=== PATIENT | male | born 1950 | race Caucasian/White ===

== ENCOUNTER 2016-10-20 12:58 | Outpatient (CLI) | payer MEDICARE, OTHER | END 2016-10-20 12:59 | disposition EMS.NT | DX: Z03.89 Encounter for observation for other suspected diseases and conditions ruled out (principal) ==

== ENCOUNTER 2017-01-27 12:08 | Outpatient (CLI) | payer MEDICARE, OTHER | END 2017-01-27 12:09 | disposition EMS.NT | LOC: EMS 12:08 | PROVIDERS: ATTEND Surgery | DX: R41.82 Altered mental status, unspecified (principal) ==

== ENCOUNTER 2017-05-09 23:02 | Outpatient (CLI) | payer MEDICARE, OTHER | END 2017-05-09 23:03 | disposition EMS.NT | LOC: EMS 23:02 | PROVIDERS: ATTEND Surgery | DX: R41.82 Altered mental status, unspecified (principal) ==

== ENCOUNTER 2017-05-24 21:06 | Outpatient (CLI) | payer MEDICARE, OTHER | END 2017-05-24 21:07 | disposition EMS.NT | LOC: EMS 21:06 | PROVIDERS: ATTEND Surgery | DX: Z03.89 Encounter for observation for other suspected diseases and conditions ruled out (principal) ==

== ENCOUNTER 2017-06-10 04:21 | Outpatient (CLI) | payer MEDICARE, OTHER | END 2017-06-10 04:22 | disposition EMS.NT | LOC: EMS 04:21 | PROVIDERS: ATTEND Surgery | DX: Z03.89 Encounter for observation for other suspected diseases and conditions ruled out (principal) ==

== ENCOUNTER 2017-08-19 00:47 | Outpatient (CLI) | payer MEDICARE, OTHER | END 2017-08-19 00:48 | disposition critical access hospital (66) | LOC: EMS 00:47 | PROVIDERS: ATTEND Surgery | DX: R11.2 Nausea with vomiting, unspecified (principal); R41.0 Disorientation, unspecified | CPT/HCPCS: A0425; A0427 ==

== ENCOUNTER 2017-08-19 00:54 | Emergency (ER) | payer MEDICARE, OTHER ==
--- NOTE | 2017-08-19 01:08 | ED Physician Documentation ---
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 Patient's roommate/friend arrived home from work approximately 30 minutes ago and found patient confused, agitated, diaphoretic. He vomited x 2. Finger stick was 45. Medics established an IV and gave 1 amp D50 and 4mg IV zofran. He quickly returned to baseline level of consciousness and behavior and repeat finger stick was 150. He is asymptomatic in ED except for fatigue, which he says is not unusual for him following an episode of hypoglycemia. He has been feeling well except for mild cough x few days. He says he ate dinner tonight (pizza) and he does not have an obvious reason for his low blood sugar tonight. Review of Systems Constitutional: reports: Fatigue, Sweats. 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 denies: Abdominal Pain : denies: Dysuria, Frequency Neurologic: reports: Confused, Altered mental status. denies: Generalized weakness, Focal weakness, Numbness, Seizure, Headache PD PAST MEDICAL HISTORY - Past Medical History Past Medical History: Yes Cardiovascular: Hypertension Neuro: None Endocrine/Autoimmune: Type 2 diabetes Musculoskeletal: Osteoarthritis - Past Surgical History Past Surgical History: Yes Ortho: Shoulder arthroplasty HEENT: Tonsil/Adenoidectomy - Present Medications Home Medications: Ambulatory Orders Medication Instructions Recorded Confirmed Ascorbic Acid [Vitamin C] 1,000 mg PO DAILY 07/09/14 07/09/14 Aspirin [[place] Aspirin] 1 tab PO DAILY 07/09/14 07/09/14 Cholecalciferol (Vitamin D3) 2,000 unit PO DAILY 07/09/14 07/09/14 [Vitamin D3] Insulin Aspart [Novolog] 2 unit SQ PRN 07/09/14 07/09/14 Lisinopril 20 mg PO DAILY 07/09/14 07/09/14 Multivitamin [Multivitamins] 1 tab PO DAILY 07/09/14 07/09/14 - Allergies Allergies/Adverse Reactions: Allergies Allergy/AdvReac Type Severity Reaction Status Date / Time No Known Drug Allergies Allergy Verified 08/19/17 01:03 - Social History Does the pt smoke?: No Smoking Status: Never smoker Does the pt drink ETOH?: Yes Does the pt have substance abuse?: No - Immunizations Immunizations are current?: Yes - POLST Patient has POLST: Yes PD ED PE NORMAL - Vitals Vital signs reviewed: Yes - General General: Alert and oriented X 3, No acute distress, Well developed/nourished - HEENT HEENT: Moist mucous membranes - Neck Neck: Supple, no meningeal sign - Cardiac Cardiac: RRR, No murmur - Respiratory Respiratory: No respiratory distress, Clear bilaterally - Abdomen Abdomen: Normal bowel sounds, Soft, Non tender, Non distended - Derm Derm: Normal color, Warm and dry - Extremities Extremities: No edema - Neuro Neuro: Alert and oriented X 3 Eye Opening: Spontaneous Motor: Obeys Commands Verbal: Oriented GCS Score: 15 Results - Vitals Vitals: Vital Signs - 24 hr 08/19/17 08/19/17 08/19/17 05:28 05:30 06:40 Heart Rate 88 82 77 Respiratory 16 16 Rate Blood Pressure 134/71 H 144/77 H 166/75 H O2 Saturation 96 98 95 Oxygen O2 Source Room air - EKG (time done) No standard instances Rate: Rate (enter#) (80) Rhythm: NSR [place]: Normal Intervals: Normal NE QRS: Normal Ischemia: Normal ST segments - Labs Labs: Laboratory Tests 08/19/17 08/19/17 08/19/17 01:00 01:13 01:13 WBC 5.6 RBC 4.46 L Hgb 14.7 Hct 41.7 L MCV 93.5 MCH 33.0 H MCHC 35.3 RDW 13.4 Plt Count 262 MPV 8.2 Neut # 4.1 Lymph # 0.7 L [place] # 0.4 Eos # 0.1 Baso # 0.2 H Absolute Nucleated RBC 0.00 Nucleated RBC % 0.0 Sodium 128 L Potassium 4.2 Chloride 92 L Carbon Dioxide 25 Anion Gap 11.0 BUN 15 Creatinine 0.8 Estimated GFR (MDRD) 96 Glucose 170 H POC Whole Bld Glucose 128 H Calcium 9.3 Total Bilirubin 0.7 AST 27 ALT 21 Alkaline Phosphatase 55 Troponin I Total Protein 7.3 Albumin 4.1 Globulin 3.2 Albumin/Globulin Ratio 1.3 Lipase 19 L Urine Color Urine Clarity Urine pH Ur Specific [place] Urine Protein Urine Glucose (UA) Urine Ketones Urine Occult Blood Urine Nitrite Urine Bilirubin Urine Urobilinogen Ur Leukocyte Esterase Ur Microscopic Review Urine Culture Comments 08/19/17 08/19/17 08/19/17 01:13 02:03 03:14 WBC RBC Hgb Hct MCV MCH MCHC RDW Plt Count MPV Neut # Lymph # [place] # Eos # Baso # Absolute Nucleated RBC Nucleated RBC % Sodium Potassium Chloride Carbon Dioxide Anion Gap BUN Creatinine Estimated GFR (MDRD) Glucose POC Whole Bld Glucose 139 H Calcium Total Bilirubin AST ALT Alkaline Phosphatase Troponin I < 0.04 Total Protein Albumin Globulin Albumin/Globulin Ratio Lipase Urine Color YELLOW Urine Clarity CLEAR Urine pH 5.5 Ur Specific [place] 1.020 Urine Protein NEGATIVE Urine Glucose (UA) 100 H Urine Ketones 15 H Urine Occult Blood NEGATIVE Urine Nitrite NEGATIVE Urine Bilirubin NEGATIVE Urine Urobilinogen 0.2 (NORMAL) Ur Leukocyte Esterase NEGATIVE Ur Microscopic Review NOT INDICATED Urine Culture Comments NOT INDICATED 08/19/17 08/19/17 03:51 06:37 WBC RBC Hgb Hct MCV MCH MCHC RDW Plt Count MPV Neut # Lymph # [place] # Eos # Baso # Absolute Nucleated RBC Nucleated RBC % Sodium Potassium Chloride Carbon Dioxide Anion Gap BUN Creatinine Estimated GFR (MDRD) Glucose POC Whole Bld Glucose 238 H 299 H Calcium Total Bilirubin AST ALT Alkaline Phosphatase Troponin I Total Protein Albumin Globulin Albumin/Globulin Ratio Lipase Urine Color Urine Clarity Urine pH Ur Specific [place] Urine Protein Urine Glucose (UA) Urine Ketones Urine Occult Blood Urine Nitrite Urine Bilirubin Urine Urobilinogen Ur Leukocyte Esterase Ur Microscopic Review Urine Culture Comments - Rads (name of study) chest xray Radiology: Prelim report reviewed, See rad report PD MEDICAL DECISION MAKING - ED course Complexity details: reviewed results, re-evaluated patient, considered differential, d/w patient ED course: Patient's blood sugar stabilized and eventually started trending up late in ED stay. He was anxious to restart his insulin pump and he did so when fingerstick resulted 239. Was asymptomatic prior to discharge. Departure - Departure Disposition: Home, Self Care Clinical Impression: Hypoglycemia Condition: Good Instructions: ED Diabetes Hypoglycemia Insulin React Discharge Date/Time: 08/19/17 06:40
[2017-08-19 01:21] LABS: BASOPHILS # (AUTO) 0.2 10^3/uL (0.0-0.1); BASOPHILS % (AUTO) 2.8 %; EOSINOPHILS # (AUTO) 0.1 10^3/uL (0.0-0.7); EOSINOPHILS % (AUTO) 2.2 %; HGB - HEMOGLOBIN 14.7 g/dL (14.0-18.0); LYMPHOCYTES # (AUTO) 0.7 10^3/uL (1.5-3.5); MEAN CORPUSCULAR HGB CONC 35.3 g/dL (32.0-36.0); MEAN CORPUSCULAR VOLUME 93.5 fL (80.0-94.0); MEAN PLATELET VOLUME 8.2 fL (7.4-11.4); MONOCYTES # (AUTO) 0.4 10^3/uL (0.0-1.0); MONOCYTES % (AUTO) 7.7 %; NEUTROPHILS # (AUTO) 4.1 10^3/uL (1.5-6.6); NEUTROPHILS % (AUTO) 74.3 %; PLT - PLATELET COUNT 262 10^3/uL (130-450); RED BLOOD COUNT 4.46 10^6/uL (4.70-6.10); RED CELL DISTRIBUTION WIDTH 13.4 % (12.0-15.0); WHITE BLOOD COUNT 5.6 x10^3/uL (4.8-10.8)
[2017-08-19 01:32] LABS: ALBUMIN 4.1 g/dL (3.2-5.5); ALBUMIN/GLOBULIN RATIO 1.3 (1.0-2.2); BILIRUBIN,TOTAL 0.7 mg/dL (0.2-1.0); CALCIUM 9.3 mg/dL (8.5-10.3); CREATININE 0.8 mg/dL (0.6-1.2); TOTAL PROTEIN 7.3 g/dL (6.7-8.2)
[2017-08-19] MEDS ORDERED: SODIUM CHLORIDE 0.9% 500 ML IV STA (02:05)
--- NOTE | 2017-08-19 02:06 | XRAY Preliminary Report ---
Exam: XR CHEST 2 VIEW X-RAY IMPRESSION: No acute process seen in the chest. [facility] SITE ID: [id number]
--- NOTE | 2017-08-19 02:07 | XRAY Report ---
EXAM: CHEST RADIOGRAPHY EXAM DATE: 08/19/2017 02:00 AM. CLINICAL HISTORY: Cough. COMPARISON: 07/21/2008. TECHNIQUE: 2 views. FINDINGS: Lungs/Pleura: No focal opacities evident. No pleural effusion. No pneumothorax. Normal volumes. Mediastinum: Heart and mediastinal contours are unremarkable. Other: Mild right hemidiaphragm elevation. IMPRESSION: No acute process seen in the chest. [facility] Referring Provider Line: [phone] SITE ID: [id number]
[2017-08-19 03:27] LABS: BILIRUBIN,URINE NEGATIVE (NEGATIVE); GLUCOSE, URINE (UA) 100 mg/dL (NEGATIVE); KETONES,URINE (UA) 15 mg/dL (NEGATIVE); LEUKOCYTE ESTERASE, URINE NEGATIVE (NEGATIVE); NITRITE,URINE NEGATIVE (NEGATIVE); OCCULT BLOOD,URINE NEGATIVE (NEGATIVE); PH,URINE 5.5 PH (5.0-7.5); PROTEIN,URINE NEGATIVE (NEGATIVE); UROBILINOGEN,URINE 0.2 (NORMAL) E.U./dL (NORMAL)
[2017-08-19 03:28] LABS: CLARITY,URINE CLEAR (CLEAR)
[2017-08-19 06:41] VITALS: BP 166/75
== END 2017-08-19 06:40 | disposition home or self-care (01) ==
LOC: EDUNIT# → SUPCPDRO 00:54 → ED 00:54
DX: E11.649 Type 2 diabetes mellitus with hypoglycemia without coma (principal); I10 Essential (primary) hypertension; Z79.4 Long term (current) use of insulin; Z79.82 Long term (current) use of aspirin
CPT/HCPCS: 36415; 71046; 80053; 81001; 81003; 83690; 84484; 85025; 87086; 93005; 96360; 99283; 99285

== ENCOUNTER 2018-01-03 21:30 | Emergency (ER) | payer MEDICARE, OTHER ==
[2018-01-03 21:40] VITALS: BP 141/81
--- NOTE | 2018-01-03 21:48 | ED Physician Documentation ---
History of Present Illness - Stated complaint Stated Complaint: VOMITING - Chief complaint Chief Complaint: General - History obtained from History obtained from: Patient - History of Present Illness Timing: Today (He started vomiting the night, just a couple of times. It was not associated with abdominal or chest pain or shortness of breath. He did have a high blood sugar earlier in the day but since then it is been back to normal. He is on an insulin pump. He feels fine now and actually is tolerated oral fluids since he vomited. He does not feel nauseous anymore.) Review of Systems Constitutional: denies: Fever, Chills Cardiac: denies: Chest pain / pressure Respiratory: denies: Dyspnea, Cough GI: denies: Abdominal Pain, Constipation, Diarrhea PD PAST MEDICAL HISTORY - Past Medical History Cardiovascular: Hypertension Endocrine/Autoimmune: Type 2 diabetes Musculoskeletal: Osteoarthritis - Past Surgical History Past Surgical History: Yes Ortho: Shoulder arthroplasty HEENT: Tonsil/Adenoidectomy - Present Medications Home Medications: Ambulatory Orders Medication Instructions Recorded Confirmed Ascorbic Acid [Vitamin C] 1,000 mg PO DAILY 07/09/14 07/09/14 Aspirin [[place] Aspirin] 1 tab PO DAILY 07/09/14 07/09/14 Cholecalciferol (Vitamin D3) 2,000 unit PO DAILY 07/09/14 07/09/14 [Vitamin D3] Insulin Aspart [Novolog] 2 unit SQ PRN 07/09/14 07/09/14 Lisinopril 20 mg PO DAILY 07/09/14 07/09/14 Multivitamin [Multivitamins] 1 tab PO DAILY 07/09/14 07/09/14 - Allergies Allergies/Adverse Reactions: Allergies Allergy/AdvReac Type Severity Reaction Status Date / Time No Known Drug Allergies Allergy Verified 01/03/18 21:39 - Social History Does the pt smoke?: No Smoking Status: Never smoker Does the pt drink ETOH?: Yes Does the pt have substance abuse?: No - Immunizations Immunizations are current?: Yes - POLST Patient has POLST: Yes PD ED PE NORMAL - Vitals Vital signs reviewed: Yes - General General: Alert and oriented X 3, No acute distress - Cardiac Cardiac: RRR, No murmur - Respiratory Respiratory: No respiratory distress, Clear bilaterally - Abdomen Abdomen: Normal bowel sounds, Soft, Non tender - Neuro Neuro: Alert and oriented X 3, Normal speech Results - Vitals Vitals: Vital Signs - 24 hr 01/03/18 21:38 Temperature 36.8 C Heart Rate 80 Respiratory 18 Rate Blood Pressure 141/81 H O2 Saturation 100 Oxygen O2 Source Room air - EKG (time done) 8 Rate: Rate (enter#) (78) Rhythm: NSR [place]: Normal Intervals: Normal ID QRS: Normal Ischemia: Normal ST segments Computer interpretation: Agree with computer PD MEDICAL DECISION MAKING - ED course ED course: 67-year-old gentleman with long-standing diabetes and is pump presents with resolved vomiting. He at this point really does not want to be here or think he needs to be here, but seems reasonable to perform at least a fingerstick blood sugar and EKG. - Sepsis Event Vital Signs: Vital Signs - 24 hr 01/03/18 21:38 Temperature 36.8 C Heart Rate 80 Respiratory 18 Rate Blood Pressure 141/81 H O2 Saturation 100 Oxygen O2 Source Room air Departure - Departure Disposition: 01 Home, Self Care Clinical Impression: Vomiting alone Qualifiers: Vomiting type: unspecified Vomiting Intractability: non-intractable Qualified Code(s): R11.11 - Vomiting without nausea Condition: Good Record reviewed to determine appropriate education?: Yes Instructions: ED Nausea Vomiting Comments: Call your doctor to arrange a follow-up appointment, make the next available appointment. In the interim, return anytime if worse or if new symptoms develop. Your blood pressure was elevated today on check into the emergency department. This does not mean that you have hypertension, it is a common phenomenon to come to the emergency department and have elevated blood pressure. I recommend that you see your primary care physician within the week to have it rechecked when you are feeling better.
== END 2018-01-03 21:50 | disposition home or self-care (01) ==
LOC: ED 21:30
DX: R11.11 Vomiting without nausea (principal); I10 Essential (primary) hypertension; E11.9 Type 2 diabetes mellitus without complications; Z96.41 Presence of insulin pump (external) (internal); Z79.4 Long term (current) use of insulin; Z79.82 Long term (current) use of aspirin
CPT/HCPCS: 93005; 99283

== ENCOUNTER 2018-11-18 18:04 | Outpatient (CLI) | payer MEDICARE, OTHER | END 2018-11-18 18:05 | disposition EMS.NT | LOC: EMS 18:04 | PROVIDERS: ATTEND Surgery | DX: E11.649 Type 2 diabetes mellitus with hypoglycemia without coma (principal) ==

== ENCOUNTER 2019-01-04 16:42 | Outpatient (CLI) | payer MEDICARE, OTHER | END 2019-01-04 16:43 | disposition critical access hospital (66) | LOC: EMS 16:42 | PROVIDERS: ATTEND Surgery | DX: R10.32 Left lower quadrant pain (principal); Z96.41 Presence of insulin pump (external) (internal) | CPT/HCPCS: A0425; A0429 ==

== ENCOUNTER 2019-01-04 17:25 | Emergency (ER) | payer MEDICARE, OTHER ==
--- NOTE | 2019-01-04 17:33 | ED Physician Documentation ---
PD HPI ABD PAIN - Stated complaint Stated Complaint: ABD PX - Chief complaint Chief Complaint: Abd Pain - History obtained from History obtained from: Patient - History of Present Illness Timing - onset: Today (Longstanding gentleman with Type I DM with L mid lateral pain this afternoon, throbbing, now better. No N/V/D. Had nl BM today. The pain was spasmodic, lasting 3 to 5 minutes at a time and pain-free between intervals. He is been pain-free for several hours now.) Review of Systems Ten Systems: 10 systems reviewed and negative Constitutional: denies: Fever, Chills Throat: denies: Dental pain / toothache, Sore throat Cardiac: denies: Chest pain / pressure, Palpitations Respiratory: denies: Dyspnea, Cough GI: reports: Abdominal Pain. denies: Nausea, Vomiting, Constipation, Diarrhea PD PAST MEDICAL HISTORY - Past Medical History Cardiovascular: Hypertension Endocrine/Autoimmune: Type 2 diabetes Musculoskeletal: Osteoarthritis - Past Surgical History Past Surgical History: Yes Ortho: Shoulder arthroplasty HEENT: Tonsil/Adenoidectomy - Present Medications Home Medications: Ambulatory Orders Medication Instructions Recorded Confirmed Ascorbic Acid [Vitamin C] 1,000 mg PO DAILY 07/09/14 07/09/14 Aspirin [[employer] Aspirin] 1 tab PO DAILY 07/09/14 07/09/14 Cholecalciferol (Vitamin D3) 2,000 unit PO DAILY 07/09/14 07/09/14 [Vitamin D3] Insulin Aspart [Novolog] 2 unit SQ PRN 07/09/14 07/09/14 Lisinopril 20 mg PO DAILY 07/09/14 07/09/14 Multivitamin [Multivitamins] 1 tab PO DAILY 07/09/14 07/09/14 - Allergies Allergies/Adverse Reactions: Allergies Allergy/AdvReac Type Severity Reaction Status Date / Time No Known Drug Allergies Allergy Verified 01/03/18 21:39 - Social History Does the pt smoke?: No Smoking Status: Never smoker Does the pt drink ETOH?: Yes Does the pt have substance abuse?: No - Immunizations Immunizations are current?: Yes - POLST Patient has POLST: Yes PD ED PE NORMAL - Vitals Vital signs reviewed: Yes - General General: Alert and oriented X 3, No acute distress - HEENT HEENT: PERRL, EOMI - Neck Neck: Supple, no meningeal sign, No bony TTP - Cardiac Cardiac: RRR, No murmur - Respiratory Respiratory: No respiratory distress, Clear bilaterally - Abdomen Abdomen: Normal bowel sounds, Soft, Non tender - Back Back: No CVA TTP, No spinal TTP - Derm Derm: No rash - Extremities Extremities: No edema, No calf tenderness / cord - Neuro Neuro: Alert and oriented X 3, Normal speech Results - Vitals Vitals: Vital Signs - 24 hr 01/04/19 17:26 Temperature 36.8 C Heart Rate 77 Respiratory 16 Rate Blood Pressure 152/85 H O2 Saturation 97 Oxygen O2 Source Room air PD MEDICAL DECISION MAKING - ED course ED course: He is pain-free now with a nontender abdominal examination area I discussed with him that this could be something like a kidney stone, less likely would be diverticulitis or other surgical issue given the lack of pain now and lack of tenderness now. He did not want to pursue further work-up at this juncture and will return if pain recurs. Departure - Departure Disposition: 01 Home, Self Care Clinical Impression: Abdominal pain Condition: Good Record reviewed to determine appropriate education?: Yes Health Concerns: resolved abd pain Plan of Treatment: pt declines workup at this juncture, will return if recurrent Care Goals: none Assessment: as above Instructions: ED Abdominal Pain Unkn Cause Male Comments: Return if pain recurs or for other new or worrisome symptoms. Your blood pressure was elevated today on check into the emergency department. This does not mean that you have hypertension, it is a common phenomenon to come to the emergency department and have elevated blood pressure. I recommend that you see your primary care physician within the week to have it rechecked when you are feeling better.
[2019-01-04 17:59] VITALS: BP 145/74
== END 2019-01-04 17:54 | disposition home or self-care (01) ==
LOC: ED 17:25
DX: R10.9 Unspecified abdominal pain (principal); E10.9 Type 1 diabetes mellitus without complications; Z79.4 Long term (current) use of insulin; I10 Essential (primary) hypertension; Z79.82 Long term (current) use of aspirin
CPT/HCPCS: 99282

== ENCOUNTER 2019-07-01 12:37 | Emergency (ER) | payer MEDICARE, OTHER ==
[2019-07-01 13:10] VITALS: BP 172/87
--- NOTE | 2019-07-01 13:42 | ED Physician Documentation ---
PD HPI BACK PAIN - Stated complaint Stated Complaint: BACK PX - Chief complaint Chief Complaint: Back Pain - History obtained from History obtained from: Patient - History of Present Illness Timing - onset: Last night (he says he turned in bed and had increased in low back pain. Had some pain intermittently for months. Has more consistent pain lower back, worse with ROM of the back. No leg weakness nor numbness. No abd pain.) Timing - details: Abrupt onset, Waxing and waning Location: Lower, Left Quality: Pain, Spasm Associated symptoms: No: Fever, Weakness, Numbness, Incontinent of urine Worsened by: Movement, Palpation Contributing factors: Lifting, Twisting Similar symptoms before: Diagnosis (low back muscle strains) Review of Systems Constitutional: denies: Fever, Chills : denies: Incontinent Skin: denies: Rash, Lesions Neurologic: denies: Focal weakness, Numbness PD PAST MEDICAL HISTORY - Past Medical History Cardiovascular: Hypertension Endocrine/Autoimmune: Type 1 diabetes Musculoskeletal: Osteoarthritis, Chronic back pain - Past Surgical History Past Surgical History: Yes Ortho: Shoulder arthroplasty HEENT: Tonsil/Adenoidectomy - Present Medications Home Medications: Ambulatory Orders Medication Instructions Recorded Confirmed Ascorbic Acid [Vitamin C] 1,000 mg PO DAILY 07/09/14 07/09/14 Aspirin [[place] Aspirin] 1 tab PO DAILY 07/09/14 07/09/14 Cholecalciferol (Vitamin D3) 2,000 unit PO DAILY 07/09/14 07/09/14 [Vitamin D3] Insulin Aspart [Novolog] 2 unit SQ PRN 07/09/14 07/09/14 Lisinopril 20 mg PO DAILY 07/09/14 07/09/14 Multivitamin [Multivitamins] 1 tab PO DAILY 07/09/14 07/09/14 Naproxen 500 mg PO BID #20 tablet 07/01/19 Tizanidine HCl 4 mg PO TID PRN #15 capsule 07/01/19 - Allergies Allergies/Adverse Reactions: Allergies Allergy/AdvReac Type Severity Reaction Status Date / Time No Known Drug Allergies Allergy Verified 07/01/19 12:42 - Social History Does the pt smoke?: No Smoking Status: Never smoker Does the pt drink ETOH?: Yes ETOH Use: Beer Does the pt have substance abuse?: No - Immunizations Immunizations are current?: Yes - POLST Patient has POLST: Yes PD ED PE NORMAL - Vitals Vital signs reviewed: Yes - General General: Alert and oriented X 3, No acute distress (does have some limited ROM of the low back, but still able to move it okay. ), Well developed/nourished - Cardiac Cardiac: RRR, No murmur - Respiratory Respiratory: No respiratory distress, Clear bilaterally - Abdomen Abdomen: Soft, Non tender - Back Back: No spinal TTP (tender in left lateral muscles lumbar area. No rash nor sores. ) - Derm Derm: Normal color, Warm and dry - Neuro Neuro: Alert and oriented X 3, No motor deficit, No sensory deficit Results - Vitals Vitals: Vital Signs - 24 hr 07/01/19 07/01/19 12:42 13:09 Temperature 36.5 C 36.7 C Heart Rate 100 78 Respiratory 14 16 Rate Blood Pressure 160/90 H 172/87 H O2 Saturation 92 98 Oxygen O2 Source Room air PD MEDICAL DECISION MAKING - ED course Complexity details: considered differential (pain with ROM of the low back. Tender in the muscles. No red flags otherwise. ), d/w patient Departure - Departure Disposition: Home, Self Care Clinical Impression: Low back pain Qualifiers: Chronicity: acute Back pain laterality: bilateral Sciatica presence: without sciatica Qualified Code(s): M54.5 - Low back pain Condition: Stable Record reviewed to determine appropriate education?: Yes Instructions: ED Spasm Back No Trauma Follow-Up: Magdalene Marte PA-C [Primary Care Provider] - Prescriptions: Naproxen 500 mg PO BID #20 tablet Tizanidine HCl 4 mg PO TID PRN #15 capsule PRN Reason: Spasms Comments: Heat and gentle stretching for the low back to decrease spasms and stiffness. Use an anti-inflammatory such as naproxen twice daily with food for 7 to 10 days. Add tizanidine muscle relaxant if needed for spasm and stiffness. To that add Tylenol 4 times a day if needed for pains. Recheck if not improved well over the next few days and return if worsening or if other symptoms develop with that. Discharge Date/Time: 07/01/19 14:19
[2019-07-01] MEDS ORDERED: methocarbamoL 500 MG TABLET PO STA (14:00)
[2019-07-01] MEDS ORDERED: ACETAMINOPHEN 325 MG TABLET PO STA (14:00)
[2019-07-01] MEDS ORDERED: IBUPROFEN 600 MG TABLET PO STA (14:00)
== END 2019-07-01 14:19 | disposition home or self-care (01) ==
LOC: ED 12:37
DX: M54.5 Low back pain (principal); I10 Essential (primary) hypertension; E10.9 Type 1 diabetes mellitus without complications; Z79.82 Long term (current) use of aspirin
CPT/HCPCS: 99282; 99284; A9270

== ENCOUNTER 2019-10-01 16:10 | Outpatient (CLI) | payer MEDICARE, OTHER | END 2019-10-01 16:11 | disposition EMS.NT | LOC: EMS 16:10 | PROVIDERS: ATTEND Surgery | DX: R41.82 Altered mental status, unspecified (principal); R73.09 Other abnormal glucose ==

== ENCOUNTER 2019-11-08 16:29 | Outpatient (CLI) | payer MEDICARE, OTHER | END 2019-11-08 16:30 | disposition critical access hospital (66) | LOC: EMS 16:29 | PROVIDERS: ATTEND Surgery | DX: R73.09 Other abnormal glucose (principal); R41.0 Disorientation, unspecified | CPT/HCPCS: A0425; A0427 ==

== ENCOUNTER 2019-11-08 16:41 | Emergency (ER) | payer MEDICARE, OTHER ==
[2019-11-08 17:04] LABS: BASOPHILS % (AUTO) 0.3 %; EOSINOPHILS # (AUTO) 0.1 10^3/uL (0.0-0.7); HGB - HEMOGLOBIN 14.4 g/dL (14.0-18.0); LYMPHOCYTES # (AUTO) 0.9 10^3/uL (1.5-3.5); LYMPHOCYTES % (AUTO) 9.9 %; MEAN CORPUSCULAR HEMOGLOBIN 33.2 pg (27.0-31.0); MEAN CORPUSCULAR HGB CONC 34.8 g/dL (32.0-36.0); MEAN CORPUSCULAR VOLUME 95.4 fL (80.0-94.0); MEAN PLATELET VOLUME 10.4 fL (7.4-11.4); MONOCYTES # (AUTO) 0.6 10^3/uL (0.0-1.0); MONOCYTES % (AUTO) 6.8 %; NEUTROPHILS # (AUTO) 7.6 10^3/uL (1.5-6.6); NEUTROPHILS % (AUTO) 81.5 %; PLT - PLATELET COUNT 229 10^3/uL (130-450); RED BLOOD COUNT 4.34 10^6/uL (4.70-6.10); RED CELL DISTRIBUTION WIDTH 12.2 % (12.0-15.0); WHITE BLOOD COUNT 9.3 x10^3/uL (4.8-10.8)
--- NOTE | 2019-11-08 17:12 | ED Physician Documentation ---
History of Present Illness - Stated complaint Stated Complaint: LOW BLOOD SUGAR - Chief complaint Chief Complaint: General - History obtained from History obtained from: Patient (This is a gentleman who has diabetes. He has an insulin pump. He was working outside heavily today and really did not have lunch except for tomato. He did not bolus himself at that time but did bolus himself with breakfast, he does not remember how much. Reportedly became confused and his blood sugar was low. He was administered D50 and a tuna sandwich prior to arrival and now feels fine and is eager to be discharged.) Review of Systems Ten Systems: 10 systems reviewed and negative Constitutional: denies: Fever, Chills, Sweats Cardiac: reports: Reviewed and negative Respiratory: reports: Reviewed and negative PD PAST MEDICAL HISTORY - Past Medical History Past Medical History: Yes Cardiovascular: Hypertension Respiratory: None Neuro: None Endocrine/Autoimmune: Type 1 diabetes GI: None : None HEENT: None Psych: None Musculoskeletal: Osteoarthritis, Chronic back pain Derm: None - Past Surgical History Past Surgical History: Yes Ortho: Shoulder arthroplasty HEENT: Tonsil/Adenoidectomy - Present Medications Home Medications: Ambulatory Orders Medication Instructions Recorded Confirmed Ascorbic Acid [Vitamin C] 1,000 mg PO DAILY 07/09/14 07/09/14 Aspirin [[place] Aspirin] 1 tab PO DAILY 07/09/14 07/09/14 Cholecalciferol (Vitamin D3) 2,000 unit PO DAILY 07/09/14 07/09/14 [Vitamin D3] Insulin Aspart [Novolog] 2 unit SQ PRN 07/09/14 07/09/14 Lisinopril 20 mg PO DAILY 07/09/14 07/09/14 Multivitamin [Multivitamins] 1 tab PO DAILY 07/09/14 07/09/14 Naproxen 500 mg PO BID #20 tablet 07/01/19 Tizanidine HCl 4 mg PO TID PRN #15 capsule 07/01/19 - Allergies Allergies/Adverse Reactions: Allergies Allergy/AdvReac Type Severity Reaction Status Date / Time No Known Drug Allergies Allergy Verified 07/01/19 12:42 - Social History Does the pt smoke?: No Smoking Status: Never smoker Does the pt drink ETOH?: Yes Does the pt have substance abuse?: No - Immunizations Immunizations are current?: Yes - POLST Patient has POLST: Yes PD ED PE NORMAL - Vitals Vital signs reviewed: Yes - General General: Alert and oriented X 3, No acute distress - Abdomen Abdomen: Normal bowel sounds, Soft, Non tender - Neuro Neuro: Alert and oriented X 3, Normal speech Results - Vitals Vitals: Vital Signs - 24 hr 11/08/19 16:48 Temperature 36.6 C Heart Rate 92 Respiratory 16 Rate Blood Pressure 140/97 H O2 Saturation 98 Oxygen O2 Source Room air - Labs Labs: Laboratory Tests 11/08/19 11/08/19 17:00 17:00 WBC 9.3 RBC 4.34 L Hgb 14.4 Hct 41.4 L MCV 95.4 H MCH 33.2 H MCHC 34.8 RDW 12.2 Plt Count 229 MPV 10.4 Neut # (Auto) 7.6 H Lymph # (Auto) 0.9 L Power # (Auto) 0.6 Eos # (Auto) 0.1 Baso # (Auto) 0.0 Absolute Nucleated RBC 0.00 Nucleated RBC % 0.0 Sodium 125 L Potassium 4.3 Chloride 90 L Carbon Dioxide 24 Anion Gap 11.0 BUN 11 Creatinine 0.9 Estimated GFR (MDRD) 83 L Glucose 321 H Calcium 9.2 Total Bilirubin 0.9 AST 22 ALT 20 Alkaline Phosphatase 58 Total Protein 7.3 Albumin 4.3 Globulin 3.0 Albumin/Globulin Ratio 1.4 Lipase 26 PD MEDICAL DECISION MAKING - ED course ED course: 69-year-old gentleman with an episode of hypoglycemia at home explained by not eating lunch today, or at least only having a tomato. He was observed here without further episodes of hypoglycemia. Departure - Departure Disposition: 01 Home, Self Care Clinical Impression: Hypoglycemia Condition: Good Record reviewed to determine appropriate education?: Yes Instructions: ED Diabetes Hypoglycemia Insulin React Comments: Check your blood sugars hourly tonight, return if they go low. 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
[2019-11-08 17:16] LABS: ALBUMIN 4.3 g/dL (3.2-5.5); ALBUMIN/GLOBULIN RATIO 1.4 (1.0-2.2); BILIRUBIN,TOTAL 0.9 mg/dL (0.2-1.0); CALCIUM 9.2 mg/dL (8.5-10.3); CREATININE 0.9 mg/dL (0.6-1.2); TOTAL PROTEIN 7.3 g/dL (6.7-8.2)
[2019-11-08 18:29] VITALS: BP 145/78
== END 2019-11-08 18:29 | disposition home or self-care (01) ==
LOC: ED 16:41
DX: E10.649 Type 1 diabetes mellitus with hypoglycemia without coma (principal); I10 Essential (primary) hypertension; Z79.4 Long term (current) use of insulin
CPT/HCPCS: 36415; 80053; 83690; 85025; 99283

== ENCOUNTER 2020-01-01 15:26 | Outpatient (CLI) | payer MEDICARE, OTHER | END 2020-01-01 15:27 | disposition EMS.NT | LOC: EMS 15:26 | PROVIDERS: ATTEND Surgery | DX: R41.82 Altered mental status, unspecified (principal); R73.09 Other abnormal glucose ==

== ENCOUNTER 2020-02-10 14:31 | Outpatient (CLI) | payer MEDICARE, OTHER | END 2020-02-10 23:59 | disposition EMS.NT | LOC: EMS 14:31 | PROVIDERS: ATTEND Surgery | DX: R41.82 Altered mental status, unspecified (principal); R73.09 Other abnormal glucose ==

== ENCOUNTER 2020-02-26 18:20 | Outpatient (CLI) | payer MEDICARE, OTHER | END 2020-02-26 18:21 | disposition critical access hospital (66) | LOC: EMS 18:20 | PROVIDERS: ATTEND Surgery | DX: R41.82 Altered mental status, unspecified (principal); R73.09 Other abnormal glucose | CPT/HCPCS: A0425; A0427 ==

== ENCOUNTER 2020-02-26 18:24 | Emergency (ER) | payer MEDICARE, OTHER ==
--- NOTE | 2020-02-26 18:59 | ED Physician Documentation ---
History of Present Illness - Stated complaint Stated Complaint: HYPOGLYCEMIA - Chief complaint Chief Complaint: General - History obtained from History obtained from: Patient - History of Present Illness Timing: Today Pain level max: 0 Pain level now: 0 - Additonal information Additional information: Patient is a diabetic male, wears an insulin pump. He was hypoglycemic earlier, given D50 and orange juice. States now feels much better. This is been a recurrent problem for him. He is on an insulin pump. No recent illnesses. No fever. No vomiting. Nothing makes it better or worse. States that he bolused himself with insulin this morning and did not eat lunch. He was on his way to get dinner. Review of Systems Constitutional: denies: Fever, Chills Respiratory: denies: Cough GI: denies: Nausea, Vomiting, Diarrhea Skin: denies: Rash Musculoskeletal: denies: Neck pain Neurologic: denies: Headache PD PAST MEDICAL HISTORY - Past Medical History Cardiovascular: Hypertension Respiratory: None Neuro: None Endocrine/Autoimmune: Type 1 diabetes GI: None : None HEENT: None Psych: None Musculoskeletal: Osteoarthritis, Chronic back pain Derm: None - Past Surgical History Past Surgical History: Yes Ortho: Shoulder arthroplasty HEENT: Tonsil/Adenoidectomy - Present Medications Home Medications: Ambulatory Orders Medication Instructions Recorded Confirmed Ascorbic Acid [Vitamin C] 1,000 mg PO DAILY 07/09/14 07/09/14 Aspirin [[place] Aspirin] 1 tab PO DAILY 07/09/14 07/09/14 Cholecalciferol (Vitamin D3) 2,000 unit PO DAILY 07/09/14 07/09/14 [Vitamin D3] Insulin Aspart [Novolog] 2 unit SQ PRN 07/09/14 07/09/14 Lisinopril 20 mg PO DAILY 07/09/14 07/09/14 Multivitamin [Multivitamins] 1 tab PO DAILY 07/09/14 07/09/14 Naproxen 500 mg PO BID #20 tablet 07/01/19 Tizanidine HCl 4 mg PO TID PRN #15 capsule 07/01/19 - Allergies Allergies/Adverse Reactions: Allergies Allergy/AdvReac Type Severity Reaction Status Date / Time No Known Drug Allergies Allergy Verified 02/26/20 18:35 - Social History Does the pt smoke?: No Smoking Status: Never smoker Does the pt drink ETOH?: Yes Does the pt have substance abuse?: No - Immunizations Immunizations are current?: Yes - POLST Patient has POLST: Yes PD ED PE NORMAL - Vitals Vital signs reviewed: Yes - General General: Alert and oriented X 3, No acute distress - HEENT HEENT: Moist mucous membranes - Neck Neck: Supple, no meningeal sign - Cardiac Cardiac: RRR - Respiratory Respiratory: No respiratory distress, Clear bilaterally - Abdomen Abdomen: Soft, Non tender, Non distended - Derm Derm: Warm and dry - Extremities Extremities: No edema - Neuro Neuro: Alert and oriented X 3 - Psych Psych: Normal mood, Normal affect Results - Vitals Vitals: Vital Signs - 24 hr 02/26/20 02/26/20 18:31 19:17 Temperature 36.2 C L Heart Rate 82 80 Respiratory 16 14 Rate Blood Pressure 170/128 H 162/92 H O2 Saturation 99 100 Oxygen O2 Source Room air PD MEDICAL DECISION MAKING - ED course Complexity details: reviewed old records, reviewed results, considered differential, d/w patient ED course: Patient does not want any further work-up at this time. He is very eager to leave the emergency department. He did consent to a fingerstick glucose. This is 190. I encouraged him to be around his trey so she can check his blood sugars and that he should eat upon leaving the emergency department. He refuses any food here. Patient should follow-up with his doctor closely. Patient counseled regarding signs and symptoms for which I believe and urgent re-evaluation would be necessary. Patient with good understanding of and agreement to plan and is comfortable going home at this time This document was made in part using voice recognition software. While efforts are made to proofread this document, sound alike and grammatical errors may occur. Departure - Departure Disposition: 01 Home, Self Care Clinical Impression: Hypoglycemia Condition: Good Instructions: ED Diabetes Hypoglycemia Oral Agent Follow-Up: Tabitha Bautista MD [Primary Care Provider] - Within 3 Days Comments: Make sure to check your blood sugars hourly at home. Someone needs to be with you trey. Return if you worsen. You need to eat when you go home. Discharge Date/Time: 02/26/20 19:17
[2020-02-26 19:18] VITALS: BP 162/92
== END 2020-02-26 19:17 | disposition home or self-care (01) ==
LOC: EDUNIT# → ED 18:24
DX: E10.649 Type 1 diabetes mellitus with hypoglycemia without coma (principal); I10 Essential (primary) hypertension; Z79.82 Long term (current) use of aspirin
CPT/HCPCS: 99283; 99284

== ENCOUNTER 2020-07-07 18:58 | Outpatient (CLI) | payer MEDICARE, OTHER | END 2020-07-07 18:59 | disposition critical access hospital (66) | LOC: EMS 18:58 | PROVIDERS: ATTEND Surgery | DX: R41.82 Altered mental status, unspecified (principal) | CPT/HCPCS: A0425; A0427 ==

== ENCOUNTER 2020-07-07 19:08 | Emergency (ER) | payer MEDICARE, OTHER ==
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
[2020-07-07 19:50] LABS: BASOPHILS % (AUTO) 0.5 %; EOSINOPHILS % (AUTO) 0.7 %; HGB - HEMOGLOBIN 13.3 g/dL (14.0-18.0); LYMPHOCYTES # (AUTO) 0.8 10^3/uL (1.5-3.5); LYMPHOCYTES % (AUTO) 12.9 %; MEAN CORPUSCULAR HEMOGLOBIN 32.6 pg (27.0-31.0); MEAN CORPUSCULAR VOLUME 95.8 fL (80.0-94.0); MEAN PLATELET VOLUME 9.9 fL (7.4-11.4); MONOCYTES # (AUTO) 0.4 10^3/uL (0.0-1.0); MONOCYTES % (AUTO) 7.4 %; NEUTROPHILS # (AUTO) 4.6 10^3/uL (1.5-6.6); NEUTROPHILS % (AUTO) 78.3 %; PLT - PLATELET COUNT 235 10^3/uL (130-450); RED BLOOD COUNT 4.08 10^6/uL (4.70-6.10); RED CELL DISTRIBUTION WIDTH 12.7 % (12.0-15.0); WHITE BLOOD COUNT 5.8 x10^3/uL (4.8-10.8)
[2020-07-07 20:02] LABS: ALBUMIN 3.8 g/dL (3.2-5.5); ALBUMIN/GLOBULIN RATIO 1.5 (1.0-2.2); CALCIUM 8.2 mg/dL (8.5-10.3); CREATININE 0.7 mg/dL (0.6-1.2); TOTAL PROTEIN 6.4 g/dL (6.7-8.2)
[2020-07-07 22:09] LABS: BILIRUBIN,URINE NEGATIVE (NEGATIVE); GLUCOSE, URINE (UA) 500 mg/dL (NEGATIVE); KETONES,URINE (UA) 15 mg/dL (NEGATIVE); LEUKOCYTE ESTERASE, URINE NEGATIVE (NEGATIVE); NITRITE,URINE NEGATIVE (NEGATIVE); OCCULT BLOOD,URINE NEGATIVE (NEGATIVE); PH,URINE 5.5 PH (5.0-7.5); PROTEIN,URINE NEGATIVE (NEGATIVE); UROBILINOGEN,URINE 0.2 (NORMAL) E.U./dL (NORMAL)
[2020-07-07 22:34] LABS: CLARITY,URINE CLEAR (CLEAR)
[2020-07-07 23:14] VITALS: BP 155/80
== END 2020-07-08 00:15 | disposition home or self-care (01) ==
LOC: EDUNIT# → ED 19:08
DX: E10.641 Type 1 diabetes mellitus with hypoglycemia with coma (principal); T38.3X5A Adverse effect of insulin and oral hypoglycemic [antidiabetic] drugs, initial encounter; Z79.4 Long term (current) use of insulin; Y92.009 Unspecified place in unspecified non-institutional (private) residence as the place of occurrence of the external cause; R61 Generalized hyperhidrosis; I10 Essential (primary) hypertension; Z79.82 Long term (current) use of aspirin
CPT/HCPCS: 36415; 80053; 81001; 81003; 83690; 85025; 87086; 99283

== ENCOUNTER 2020-07-14 17:01 | Outpatient (CLI) | payer MEDICARE, OTHER | END 2020-07-14 17:02 | disposition EMS.NT | LOC: EMS 17:01 | PROVIDERS: ATTEND Surgery | DX: E11.649 Type 2 diabetes mellitus with hypoglycemia without coma (principal); Z96.41 Presence of insulin pump (external) (internal) ==

== ENCOUNTER 2020-09-02 08:32 | Outpatient (CLI) | payer MEDICARE, OTHER | END 2020-09-02 08:33 | disposition EMS.NT | LOC: EMS 08:32 | DX: R41.0 Disorientation, unspecified (principal) ==

== ENCOUNTER 2020-11-06 01:31 | Outpatient (CLI) | payer MEDICARE, OTHER | END 2020-11-06 01:32 | disposition critical access hospital (66) | LOC: EMS 01:31 | DX: Z04.1 Encounter for examination and observation following transport accident (principal) | CPT/HCPCS: A0425; A0427 ==

== ENCOUNTER 2020-11-06 01:39 | Emergency (ER) | payer MEDICARE, OTHER ==
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
[2020-11-06 02:06] LABS: BILIRUBIN,URINE NEGATIVE (NEGATIVE); GLUCOSE, URINE (UA) 250 mg/dL (NEGATIVE); KETONES,URINE (UA) NEGATIVE (NEGATIVE); LEUKOCYTE ESTERASE, URINE NEGATIVE (NEGATIVE); NITRITE,URINE NEGATIVE (NEGATIVE); OCCULT BLOOD,URINE NEGATIVE (NEGATIVE); PH,URINE 5.5 PH (5.0-7.5); PROTEIN,URINE NEGATIVE (NEGATIVE); UROBILINOGEN,URINE 0.2 (NORMAL) E.U./dL (NORMAL)
[2020-11-06 02:07] LABS: CLARITY,URINE CLEAR (CLEAR)
[2020-11-06 02:31] LABS: BASOPHILS % (AUTO) 0.5 %; EOSINOPHILS # (AUTO) 0.2 10^3/uL (0.0-0.7); EOSINOPHILS % (AUTO) 2.7 %; HCT - HEMATOCRIT 40.3 % (42.0-52.0); LYMPHOCYTES # (AUTO) 1.3 10^3/uL (1.5-3.5); LYMPHOCYTES % (AUTO) 14.7 %; MEAN CORPUSCULAR HEMOGLOBIN 32.6 pg (27.0-31.0); MEAN CORPUSCULAR HGB CONC 34.7 g/dL (32.0-36.0); MEAN CORPUSCULAR VOLUME 93.7 fL (80.0-94.0); MEAN PLATELET VOLUME 9.8 fL (7.4-11.4); MONOCYTES # (AUTO) 0.6 10^3/uL (0.0-1.0); MONOCYTES % (AUTO) 7.2 %; NEUTROPHILS # (AUTO) 6.4 10^3/uL (1.5-6.6); NEUTROPHILS % (AUTO) 74.5 %; PLT - PLATELET COUNT 277 10^3/uL (130-450); RED CELL DISTRIBUTION WIDTH 12.9 % (12.0-15.0); WHITE BLOOD COUNT 8.5 x10^3/uL (4.8-10.8)
[2020-11-06 02:42] LABS: ALBUMIN 4.1 g/dL (3.2-5.5); ALBUMIN/GLOBULIN RATIO 1.4 (1.0-2.2); CALCIUM 9.2 mg/dL (8.5-10.3); CREATININE 0.9 mg/dL (0.6-1.2); POTASSIUM 3.8 mmol/L (3.5-5.0)
[2020-11-06 04:11] VITALS: BP 132/88
== END 2020-11-06 04:22 | disposition home or self-care (01) ==
LOC: EDUNIT# → ED 01:39
DX: Z04.1 Encounter for examination and observation following transport accident (principal); V47.5XXA Car driver injured in collision with fixed or stationary object in traffic accident, initial encounter; Y92.410 Unspecified street and highway as the place of occurrence of the external cause; E10.649 Type 1 diabetes mellitus with hypoglycemia without coma; I10 Essential (primary) hypertension; Z79.82 Long term (current) use of aspirin
CPT/HCPCS: 36415; 80053; 81001; 81003; 83690; 85025; 87086; 99283

== ENCOUNTER 2020-12-05 14:56 | Outpatient (CLI) | payer MEDICARE, OTHER | END 2020-12-05 14:57 | disposition EMS.NT | LOC: EMS 14:56 | DX: R46.89 Other symptoms and signs involving appearance and behavior (principal) ==

== ENCOUNTER 2020-12-15 19:05 | Outpatient (CLI) | payer MEDICARE, OTHER | END 2020-12-15 19:06 | disposition EMS.NT | LOC: EMS 19:05 | DX: E16.2 Hypoglycemia, unspecified (principal) ==

== ENCOUNTER 2021-01-28 09:07 | Outpatient (CLI) | payer MEDICARE, OTHER | END 2021-01-28 09:08 | disposition EMS.NT | LOC: EMS 09:07 | DX: E16.2 Hypoglycemia, unspecified (principal) ==

== ENCOUNTER 2021-01-29 11:51 | Outpatient (CLI) | payer MEDICARE, OTHER | END 2021-01-29 11:52 | disposition EMS.NT | LOC: EMS 11:51 | DX: E16.2 Hypoglycemia, unspecified (principal) ==

== ENCOUNTER 2021-01-30 16:16 | Outpatient (CLI) | payer MEDICARE, OTHER | END 2021-01-30 16:17 | disposition E | LOC: EMS 16:16 ==